=== PATIENT | male | born 1960 | race Caucasian/White ===

== ENCOUNTER 2021-07-26 21:58 | Emergency (ER) | payer MEDICAID, OTHER ==
[~2021-07-26] VITALS: Ht 177.8 cm; Wt 86.2 kg
--- NOTE | 2021-07-26 23:14 | NUR ---
Dr. Epps at bedside for MSE.
[2021-07-26] MEDS ORDERED: IV NORMAL SALINE 1000 ML BAG IV ONE (23:30)
[2021-07-26] MEDS ORDERED: ONDANSETRON 4 MG/2 ML VIAL IV ONE (23:30)
[2021-07-26] MEDS ORDERED: HYDROMORPHONE 1 MG/1 ML DISP.SYRIN IV ONE (23:30)
[2021-07-26] MEDS ORDERED: ALBUTEROL SULFATE 2.5 MG/3 ML NEBU NEB ONE (23:30)
[2021-07-26] MEDS ORDERED: ALBUTEROL SULFATE 2.5 MG/3 ML NEBU ONE (23:40)
[2021-07-26] MEDS ORDERED: IV NORMAL SALINE 250 ML IV ONE (23:47)
[2021-07-26] MEDS ORDERED: IOHEXOL 350 100 ML INFUS..BTL ONE (23:47)
[2021-07-26] MEDS ORDERED: SWABABLE VALVE TRANSFER SET EA MC ONE (23:47)
[2021-07-26] MEDS ORDERED: HYDROMORPHONE 1 MG/1 ML DISP.SYRIN ONE (23:49)
[2021-07-26] MEDS ORDERED: ONDANSETRON 4 MG/2 ML VIAL ONE (23:49)
[2021-07-26 23:52] LABS: HEMATOCRIT 44.4 % (36.7-47.1); MEAN CORPUSCULAR HEMOGLOBIN 30.6 uug (23.8-33.4); MEAN CORPUSCULAR VOLUME 88.6 fL (73.0-96.2); PLATELET COUNT (AUTO) 306 K/uL (152-348)
[2021-07-27 00:07] LABS: CREATININE 1.1 mg/dL (0.6-1.3); POTASSIUM 3.8 mmol/L (3.5-5.1)
[2021-07-27 00:13] LABS: BILIRUBIN,DIRECT 1.4 mg/dL (0.0-0.2); BILIRUBIN,TOTAL 1.8 mg/dL (0.2-1.0); TOTAL PROTEIN, SERUM 7.2 g/dL (6.4-8.2)
--- NOTE | 2021-07-27 00:15 | NUR ---
Ultrasound at bedside.
--- NOTE | 2021-07-27 02:57 | NUR ---
Dr. Epps speaking with Dr. Veloz of [facility].
[2021-07-27] MEDS ORDERED: PIPERACILLIN SODIUM/TAZOBACTAM 3.375 G in IV DEXTROSE 5% 50 ML IV ONE (03:00)
[2021-07-27] MEDS ORDERED: PIPERACILLIN/TAZOBACTAM/D5W 50 ML IV ONE (03:11)
--- NOTE | 2021-07-27 03:39 | NUR ---
Dr. Epps speaking with Dr. Farris.
--- NOTE | 2021-07-27 03:40 | NUR ---
Pt accepted for transfer to [facility]. Awaiting transfer information.
--- NOTE | 2021-07-27 04:25 | NUR ---
Received call back from Loni, Microscopist, Patient going to [facility], [facility] bed room 308B, Accepting MD is Dr. Farris, Phone number to report to is
--- NOTE | 2021-07-27 04:25 | NUR ---
Wilfrido centeno in EDM - 07/27/21 at 0651 by LETICIA Received call back from Loni, Health Information Administrator, Patient going to [facility], [facility] bed room 308B, Accepting MD is Dr. Farris, Phone number to report to is
--- NOTE | 2021-07-27 04:27 | NUR ---
Received call back from [facility], Patient is going to be picked up for transfer to [facility] @0700 by [facility].
--- NOTE | 2021-07-27 06:59 | NUR ---
Report given to Radha Bonilla.
[2021-07-27] MEDS ORDERED: KETOROLAC TROMETHAMINE 30 MG INJ IVP ONE (07:15)
--- NOTE | 2021-07-27 07:50 | NUR ---
Called [facility], they stated ETA approx 30 min.
--- NOTE | 2021-07-27 09:17 | NUR ---
Gave report and pt's chart to termite control servicer, pt transported.
--- NOTE | 2021-07-27 10:00 | NUR ---
PT PICKED UP BY [facility] FOR TRANSFER TO [place] IN STABLE CONDITION.
[2021-07-27 10:35] VITALS: BP 129/75
== END 2021-07-27 10:39 | disposition short-term general hospital (02) ==
LOC: ER 22:01
DX: K81.0 Acute cholecystitis (principal); J98.01 Acute bronchospasm; J96.91 Respiratory failure, unspecified with hypoxia; R74.01 Elevation of levels of liver transaminase levels; Z20.822 Contact with and (suspected) exposure to COVID-19
CPT/HCPCS: 36415 ×2; 71045; 71275; 74177; 76705; 80048; 80076; 83605; 83690; 83880; 84484; 85025; 85730; 87426; 93005; 94640; 96361; 96365; 96375; 99285; J1170; J2405; J2543; Q9967; 70030-TC; J7030; J7050

== ENCOUNTER 2022-02-04 20:50 | Emergency (ER) | payer OTHER ==
[~2022-02-04] VITALS: Ht 177.8 cm; Wt 86.2 kg
--- NOTE | 2022-02-04 21:15 | NUR ---
Patient walked into ER c/o left leg pain and swelling x1 week
--- NOTE | 2022-02-04 21:16 | NUR ---
Dr Hamilton in room for GONZALES
[2022-02-04 21:33] LABS: HEMATOCRIT 41.1 % (36.7-47.1); MEAN CORPUSCULAR HEMOGLOBIN 30.1 uug (23.8-33.4); MEAN CORPUSCULAR VOLUME 87.4 fL (73.0-96.2); PLATELET COUNT (AUTO) 231 K/uL (152-348)
[2022-02-04 21:39] LABS: CREATININE 1.1 mg/dL (0.6-1.3); POTASSIUM 3.6 mmol/L (3.5-5.1)
[2022-02-04 21:45] LABS: BILIRUBIN,DIRECT 0.1 mg/dL (0.0-0.2); BILIRUBIN,TOTAL 0.4 mg/dL (0.2-1.0); TOTAL PROTEIN, SERUM 6.9 g/dL (6.4-8.2)
[2022-02-04] MEDS ORDERED: CLINDAMYCIN PHOSPHATE 600 MG/4 ML VIAL ONE (21:57)
[2022-02-04] MEDS ORDERED: CLINDAMYCIN PHOSPHATE IV 600 MG in IV DEXTROSE 5% 100 ML IV ONE (22:00)
--- NOTE | 2022-02-04 22:34 | NUR ---
Patient is A/Ox4, denies CP, SOB and CARNEY
[2022-02-04] MEDS ORDERED: CLIN300C12 PO (23:13)
[2022-02-04 23:33] VITALS: BP 126/76
--- NOTE | 2022-02-04 23:33 | NUR ---
Patient does not wish to proceed with medical care recommended by Dr. Hamilton. Patient given information related to possible complications, up to and including , which could occur as a result of leaving the hospital at this time. Patient verbalizes understanding of risks involved due to leaving against medical advice. Patient has signed AMA form.
== END 2022-02-04 23:30 | disposition left against medical advice (07) ==
LOC: ER 20:56
DX: L03.116 Cellulitis of left lower limb (principal); Z53.29 Procedure and treatment not carried out because of patient's decision for other reasons; F17.210 Nicotine dependence, cigarettes, uncomplicated; Z90.49 Acquired absence of other specified parts of digestive tract; Z20.822 Contact with and (suspected) exposure to COVID-19
CPT/HCPCS: 36415; 73590; 80048; 80076; 83605; 85025; 85651; 86140; 87040 ×2; 87426; 93005; 96374; 99285; J3490; A4663

== ENCOUNTER 2022-04-21 23:27 | Emergency (ER) | payer OTHER ==
[~2022-04-21] VITALS: Ht 177.8 cm; Wt 86.2 kg
[~2022-04-21 23:27] MED LIST: CLIN300C12 PO
--- NOTE | 2022-04-22 00:42 | NUR ---
Patient is a/ox4, NAD noted. Patient is able to walk with steady gait
--- NOTE | 2022-04-22 00:50 | NUR ---
Dr Rossi in room MSE in progress
[2022-04-22] MEDS ORDERED: HYDR-4209 PO (01:10)
[2022-04-22] MEDS ORDERED: CLIN300C12 PO (01:10)
[2022-04-22] MEDS ORDERED: CLINDAMYCIN 900MG/D5W 100ML IVPB **ER PYXIS ONLY IJ ONE (01:14)
[2022-04-22] MEDS ORDERED: CLINDAMYCIN PHOSPHATE IV 900 MG in IV DEXTROSE 5% 100 ML IV ONE (01:15)
--- NOTE | 2022-04-22 01:41 | NUR ---
Patient discharged to home in stable condition. Written and verbal after care instructions given. Patient verbalizes understanding of instructions. Stressed follow up or return to ER for worsening s/s. PAtient is able to walk with steady gait. NAD noted
[2022-04-22 01:43] VITALS: BP 132/83
== END 2022-04-22 01:43 | disposition home or self-care (01) ==
LOC: ER 23:33
DX: L03.114 Cellulitis of left upper limb (principal); B95.62 Methicillin resistant Staphylococcus aureus infection as the cause of diseases classified elsewhere; F17.210 Nicotine dependence, cigarettes, uncomplicated; R03.0 Elevated blood-pressure reading, without diagnosis of hypertension
CPT/HCPCS: 99284; 96365; 87070; J3490; 87077; A4663